=== PATIENT | female | born 1980 | race Asian ===

== ENCOUNTER 2024-03-19 12:23 | Emergency (ER) | payer SELFPAY ==
[2024-03-19 12:35] VITALS: BP 124/86
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
[2024-03-19] MEDS: MOTRIN 800 MG PO (13:24)
[2024-03-19 13:30] VITALS: BP 114/74
== END 2024-03-19 13:47 | disposition home or self-care (01) ==
LOC: EMR 12:23
PROVIDERS: EMERGENCY PHYSICIAN Emergency Medicine; FAMILY PHYSICIAN Family Medicine
DX: S09.90XA Unspecified injury of head, initial encounter (principal); Y04.2XXA Assault by strike against or bumped into by another person, initial encounter; R03.0 Elevated blood-pressure reading, without diagnosis of hypertension
CPT/HCPCS: 99283